=== PATIENT | male | born 1960 | race Caucasian/White ===

== ENCOUNTER → 2019-11-25 | Outpatient (CLI) | payer OTHER | LOC: M.CT 09:54 | PROVIDERS: ATTEND Internal Medicine | DX: R91.8 Other nonspecific abnormal finding of lung field (principal); J18.9 Pneumonia, unspecified organism; R06.02 Shortness of breath ==

== ENCOUNTER → 2019-12-13 | Outpatient (CLI) | payer OTHER ==
--- NOTE | 2019-12-13 10:05 | 2DMMODE ---
[place] [address] 2 D/M-MODE ECHOCARDIOGRAM Name: EMMY BAILEY Room: [facility]#: [id number] Admission: 12/13/19 Attend Phys: Wu Sanford, Discharge: Date of : 62 Date of Service: 12/13/19 1005 Report #: [id number] THIS REPORT FOR: cc: Wu Sanford MD, Dean L. MD Blick, David R. MD [facility] ~ APPROVED REPORT Study performed: 12/13/2019 07:59:42 EXAM: Comprehensive 2D, Doppler, and color-flow Echocardiogram Patient Location: Out-Patient BSA: 2.20 HR: 75 bpm BP: 130/70 mmHg Other Information Study Quality: Fair Indications Congestive Heart Failure 2D Dimensions IVSd: 11.28 (7-11mm) LVOT Diam: 20.10 (18-24mm) LVDd: 46.56 mm PWd: 9.14 (7-11mm) Ascending Ao: 29.00 (22-36mm) LVDs: 25.12 (25-40mm) Aortic Root: 31.03 mm Volumes Left Atrial Volume (Systole) LA ESV Index: 19.70 mL/m2 Aortic Valve AoV Peak Elliot.: 1.11 m/s AO Peak Gr.: 4.95 mmHg LVOT Max P.41 mmHg AO Mean Gr.: 2.44 mmHg LVOT Mean P.86 mmHg LVOT Max V: 1.05 m/s AO V2 VTI: 18.49 cm LVOT Mean V: 0.61 m/s ROSE (VTI): 3.45 cm2 LVOT V1 VTI: 20.11 cm Mitral Valve E/A Ratio: 0.92 [place] [address] 2 D/M-MODE ECHOCARDIOGRAM Name: EMMY BAILEY Room: [facility]#: [id number] Admission: 12/13/19 Attend Phys: Wu Sanford, Discharge: Date of : 62 Date of Service: 12/13/19 1005 Report #: [id number] MV Decel. Time: 207.19 ms MV E Max Elliot.: 0.64 m/s MV PHT: 60.09 ms MVA (PHT): 3.66 cm2 TDI E/Lateral E': 4.92 E/Medial E': 6.40 Medial E' Elliot.: 0.10 m/s Lateral E' Elliot.: 0.13 m/s Pulmonary Valve PV Peak Elliot.: 0.93 m/s PV Peak Gr.: 3.47 mmHg Tricuspid Valve RAP Estimate: 5.00 mmHg TR Peak Gr.: 17.81 mmHg RVSP: 22.81 mmHg PA Pressure: 22.81 mmHg Left Ventricle The left ventricle is normal size. There is normal LV segmental wall motion. There is normal left ventricular wall thickness. Left ventricular systolic function is normal. The left ventricular ejection fraction is within the normal range. LVEF is 55-60%. Grade I - abnormal relaxation pattern. Right Ventricle The right ventricle is normal size. The right ventricular systolic function is normal. Atria The left atrium size is normal. The right atrium size is normal. Aortic Valve Aortic valve leaflets are mildly thickened. No aortic regurgitation is present. There is no aortic valvular stenosis. Mitral Valve Mitral valve leaflets are mildly thickened. Mild mitral regurgitation. No evidence of mitral valve stenosis. Tricuspid Valve The tricuspid valve is normal in structure. Mild tricuspid regurgitation[place] [address] 2 D/M-MODE ECHOCARDIOGRAM Name: EMMY BAILEY Room: [facility]#: [id number] Admission: 12/13/19 Attend Phys: Wu Sanford, Discharge: Date of : 62 Date of Service: 12/13/19 1005 Report #: [id number] Pulmonic valve is not well visualized. There is no pulmonic valvular regurgitation. Great Vessels The aortic root is normal in size. IVC is normal in size and collapses >50% with inspiration. Pericardium There is no pericardial effusion. <Conclusion> LVEF is 55-60%. Aortic valve leaflets are mildly thickened. Mild mitral regurgitation. <ELECTRONICALLY SIGNED> By: Mateusz Perez MD, FACC 12/13/19 100 04 04 Mateusz Perez MD, FACC /INF
== END ==
LOC: M.CRD 07:49
PROVIDERS: ATTEND Internal Medicine
DX: I08.3 Combined rheumatic disorders of mitral, aortic and tricuspid valves (principal); I50.9 Heart failure, unspecified